=== PATIENT | male | born 1955 | race Caucasian/White ===

== ENCOUNTER → 2025-03-17 11:16 | Outpatient (REF) | payer OTHER, SELFPAY | LOC: HWRAD 11:16 | PROVIDERS: ATTENDING PHYSICIAN Student in an Organized Health Care Education/Training Program | DX: K40.90 Unilateral inguinal hernia, without obstruction or gangrene, not specified as recurrent (principal) | CPT/HCPCS: 76882 ==

== ENCOUNTER 2025-04-07 09:58 | Emergency (ER) | payer OTHER, SELFPAY ==
[2025-04-07 09:59] VITALS: BP 218/107
[2025-04-07 10:10] VITALS: BP 196/96
[2025-04-07 10:16] VITALS: BMI 24.3
--- NOTE | 2025-04-07 10:34 | ED.GENMED ---
History of Present Illness
General
Chief Complaint: Blood Pressure Problem
Source: patient and spouse
Time Seen by Provider: 04/07/25 10:21
History of Present Illness
History of Present Illness:
69-year-old male with past medical history of hypertension, hyperlipidemia, [id number] diabetes presenting to the emergency department for evaluation after his blood pressure has been elevated over the last week, initially noticed when he
was at an appointment with his general surgeon, Dr. Colon, as part of preoperative planning for a inguinal hernia. Patient's systolic was between 170 and 180 with his diastolics being as high as around 100 and during the week his blood pressures
have remained around these pressures, over the last 48 to 72 hours has noticed some mild head pressure. He denies any chest pain, shortness of breath, visual disturbances, focal weakness or numbness or any other concerns. Patient does report good
compliance with his Benicar and atenolol, took both of these medications this morning. Patient sees primary care provider Dr. Hussein who manages patient's blood pressure
Past History
Past History
ED Past Medical History: HTN, Hypercholesterolemia and NIDDM (borderline)
ED Past Surgical History: None
Social History
Tobacco: Non-smoker
Alcohol: Daily
Drug: None
Personal:
Living: with family
Employment: Employed
Review of Systems
Review of Systems
All Other Systems: ROS reviewed and negative except as documented in HPI and ROS
Phy Exam
Physical Exam
Physical Exam:
GENERAL: Alert , in no apparent distress
VITAL SIGNS: BP 196/94 at time of my exam
EYE: clear conjunctiva b/l
HEAD: NCAT
ENT: o/p clr, mmm.
CARDIAC: Regular rate and rhythm .
LUNGS: Clear breath sounds bilaterally, no acute respiratory distress, no wheezes/rales/rhonchi
ABDOMEN: Soft, without focal tenderness, no r/g, no cvat
NEUROLOGICAL: Alert and oriented
SKIN: Warm and dry, skin intact.
MUSCULOSKELETAL: No edema, well perfused.
PSYCH: Normal and appropriate interaction.
Scores
Heart Failure Risk
Heart Failure Risk Score: Not Applicable
Heart Score for Chest Pain Patients
STEMI patient?: Not applicable
Withdrawal Assessment of Alcohol
Withdrawal Assessment Completed?: Not applicable
Course
Orders/Labs/Results
Orders:
Orders
04/07/25 10:21
Electrocardiogram (*1) Urgent
Reason for Study: Hypertension, Benign
EKG- Treatment ONCE
04/07/25 10:29
CT Head W/o Iv Contrast Urgent
Comment:
Reason For Exam: HTN, head pressure
04/07/25 10:37
CBC/With Diff [Complete Blood Count/With Diff] Urgent
Comprehensive Metabolic Panel Urgent
Troponin I Urgent
Abnormal Lab Results
04/07/25
10:37
MCH 31.6 H pg
(27.0-31.0)
Glucose 135 H mg/dl
(70-99)
04/07/25 10:37
04/07/25 10:37
Vital Signs
Initial and Last Documented VS:
Initial Vital Signs
Temp Pulse Resp BP Pulse Ox
98.2 F 58 16 218/107 98
04/07/25 09:59 04/07/25 09:59 04/07/25 09:59 04/07/25 09:59 04/07/25 09:59
Last Documented Vital Signs
Temp Pulse Resp BP Pulse Ox
98.2 F 45 15 161/87 98
04/07/25 09:59 04/07/25 11:30 04/07/25 10:30 04/07/25 11:19 04/07/25 11:30
MDM/Problems Addressed
Differential Diagnosis Includes:
Benign hypertension
Malignant hypertension
ICH
CVA
ACS
Renal dysfunction
Medication non-compliance
MDM/Problems Addressed:
69-year-old male presenting to the ER for evaluation of elevated blood pressure over the last week, incidentally found at preoperative office visit last week. Blood pressures have remained elevated since then despite patient's reported compliance
with his medications. Significantly hypertensive in triage, mildly improved at time of my exam but still profoundly hypertensive. Will check labs, EKG and CT of the head. Will discuss with patient's primary care provider to help ensure close
follow-up and potential for medication adjustments.
Chronic conditions affecting care: HTN
Acute Exacerbation and/or Progression of Chronic Illness: HTN
*Radiology
Radiology exam reviewed: radiology read reviewed
*Pulse Oximetry
SaO2: 98
Oxygen Mode of Delivery: Room air
Patient hypoxic: no
*EKG
Heart Rate: 47
Rate: bradycardiac
Rhythm: sinus
Interval: first degree heart block
Ischemia: no ischemia
*Critical Care Note
Total Time (30-74mins, 75-104mins- exclusive of procedures): Not Applicable
Data Reviewed
Review of Other/Old Records Reveals: Testing
Patient Management
Discussion with other providers: PCP
Escalation/DeEscalation of care consider admission/obs:
Patient's workup is unremarkable. Blood pressure did decrease to 161/87 without any intervention and while this is still elevated, does not need any emergent intervention completed. I did notify patient's primary care provider via [employer] text to
help ensure close follow-up. Patient aware of return precautions. Stable for discharge.
ED Attending Note
-
Portions of this chart may have been created with voice recognition software.� Occasional wrong word or��sound alike� substitutions may have occurred due to the inherent limitations of voice recognition software.
Discharge Plan
Departure
Patient Disposition: Home (Routine Discharge)
Date of Disposition: 04/07/25
Time of Disposition: 11:36
Patient with high blood pressure during this ER visit?: Yes
Discharge Problem:
Hypertension
Instructions: High Blood Pressure (DC)
Prescriptions:
No Action
atenolol 50 MG tablet
50 mg PO DAILY
olmesartan 20 MG tablet
40 mg PO DAILY
cholecalciferol (vitamin D3) 1,000 UNITS tablet
1,000 units PO DAILY
multivitamin with folic acid [Tab-A-Christos] 1 TABLET tablet
1 tab PO DAILY
clopidogrel [Plavix] 75 MG tablet
75 mg PO DAILY Qty: 30 0RF
atorvastatin 40 MG tablet
40 mg PO QPM Qty: 30 2RF
aspirin 81 MG tablet,chewable
81 mg PO DAILY Qty: 21 0RF
Rx Instructions:
LAST DOSE ON 01/08/21
Referrals:
Uma Montenegro MD [Family Provider, Internal Medicine]
Interventions
Interventions:
*Risk Screen - Suicide Last Done: 04/07/25 09:59
*General Assessment Last Done: 04/07/25 10:16
*Neglect/Abuse Screening Last Done: 04/07/25 09:59
*ED COVID-19 Vaccine History Last Done: 04/07/25 10:16
*ED Influenza Vaccine History Last Done: 04/07/25 10:16
*Nursing Disposition Last Done: 04/07/25 11:49
ED- Cardiac Assessment Last Done: 04/07/25 10:18
ED- Neurological Assessment Last Done: 04/07/25 10:18
ED- Pulmonary Assessment Last Done: 04/07/25 10:18
Discharge Date and Time
Discharge Date/Time: 04/07/25 11:50
Print Language: AMHARIC
[2025-04-07 11:00] LABS: Hematocrit 45.5 % (39.0-52.0); Hemoglobin 15.4 g/dL (13.0-18.0); Mean Corp Hgb Conc. 33.8 g/dL (33.0-37.0); Mean Corpuscular Volume 93.2 fL (80.0-94.0); Nucleated Red Blood Cells % 0 % (-); Platelet Count 144 10^3/uL (130-400); Red Cell Dist. Width 12.4 % (11.5-14.5)
[2025-04-07 11:07] LABS: ALT (SGPT) 42 U/L (0-50); AST (SGOT) 35 U/L (17-59); Albumin 4.6 g/dl (3.5-5.0); Alkaline Phosphatase 61 U/L (38-126); Blood Urea Nitrogen 15 mg/dl (9-20); Calcium 9.5 mg/dl (8.4-10.2); Carbon Dioxide 29 mmol/L (22-30); Chloride 103 mmol/L (98-107); Estimated Creatinine Clearance 72 ml/min; Glucose 135 mg/dl (70-99); Potassium 4.1 mmol/L (3.5-5.1); Sodium 136 mmol/L (135-145); Total Protein 6.6 g/dl (6.3-8.2); eGFR > 60.00
[2025-04-07 11:19] VITALS: BP 161/87
[2025-04-07 11:20] LABS: Troponin I < 0.012 ng/ml
== END 2025-04-07 11:50 | disposition home or self-care (01) ==
LOC: EMR 09:58
PROVIDERS: Physician Assistant Medical; EMERGENCY PHYSICIAN Emergency Medicine; FAMILY PHYSICIAN Student in an Organized Health Care Education/Training Program
DX: I10 Essential (primary) hypertension (principal); I44.0 Atrioventricular block, first degree; E11.9 Type 2 diabetes mellitus without complications; E78.00 Pure hypercholesterolemia, unspecified; Z79.02 Long term (current) use of antithrombotics/antiplatelets; Z79.82 Long term (current) use of aspirin
CPT/HCPCS: 99284; 70450; 80053; 84484; 85025; 93005

== ENCOUNTER → 2025-04-21 14:05 | Outpatient (REF) | payer OTHER, SELFPAY | LOC: DHVS 14:05 | PROVIDERS: ATTENDING PHYSICIAN Student in an Organized Health Care Education/Training Program | DX: I10 Essential (primary) hypertension (principal) | CPT/HCPCS: 36415; 82088; 83835; 84244; 93975 ==